=== PATIENT | female | born 1980 | race Two or more races ===

== ENCOUNTER 2017-02-14 07:03 | Emergency (ER) | payer OTHER ==
[~2017-02-14] VITALS: Ht 172.7 cm; Wt 91.0 kg
[~2017-02-14 07:03] MED LIST: AUGM875T PO; FLUC200T63 PO; FLUT1SPR9 NASAL; METH1TAB29 PO; VALT500T PO
[2017-02-14 07:04] VITALS: BP 127/82; PULSE 122; RESP 24; TEMP 100.2; O2SAT 96
[2017-02-14 07:24] VITALS: BP 149/80; PULSE 112; RESP 20; TEMP 99.3; O2SAT 97
[2017-02-14] MEDS ORDERED: MACR100C2 PO (07:24)
[2017-02-14] MEDS ORDERED: VALT500T PO (07:24)
[2017-02-14] MEDS ORDERED: PROT40TA PO (07:24)
[2017-02-14] MEDS ORDERED: SODIUM CHLOR 0.9% 1000 ML INJ 1,000 ML IV ONE ×3 (07:42)
[2017-02-14] MEDS ORDERED: ACETAMINOPHEN 325 MG TAB PO ONE (07:45)
--- NOTE | 2017-02-14 07:45 | PD ---
HPI Chief Complaint: Fever Time Seen by Provider: 07:12 Travel History International Travel<30 days: No Contact w/Intl Traveler<30days: No Traveled to known affect area: No History of Present Illness HPI 36-year-old female presents emergency Department with 3-4 day history of fevers cough congestion body aches and headache. Patient states that she has been gradually worsening. Fevers at home. She's also been diagnosed with urinary tract infection is currently taking Macrobid. She states she's been having cough productive of yellow sputum and has a history of asthma. Notably her son was diagnosed with yaib-[id number]-[id number]-mouth disease recently as well as strep throat. She did not receive flu shot this year. States she has a history of asthma. She has an inhaler at home. Denies abdominal pain nausea vomiting or diarrhea. PFSH Past Medical History Asthma: Yes Depression: Yes Cancer: No Cardiovascular Problems: Yes High Cholesterol: Yes Diminished Hearing: No Endocrine: No Gastrointestinal Disorders: Yes Genitourinary: No Headaches: Yes Immune Disorder: Yes (herpes) Musculoskeletal: No Neurologic: Yes Psychiatric: Yes Reproductive: No Respiratory: Yes (ASTHMA) Migraines: Yes ?: Not LMP: 01/28/17 : 1 Para: 1 Ovarian Cysts: Yes Past Surgical History Tonsillectomy: Yes Other Surgery: Yes (I & D ABSCESS RT GROIN 2004) Social History Alcohol Use: No Tobacco Use: No Substance Use: No Allergies-Medications (Allergen,Severity, Reaction): Coded Allergies: Latex (Verified Allergy, Mild, ITCHING, 02/14/17) Test Allergy (Name Field) (Verified Allergy, Mild, SWELLING; NOSE ITCHES, 02/14/17) Sulfa (Verified Allergy, Unknown, 02/14/17) Reported Meds & Prescriptions Reported Meds & Active Scripts Active Reported Macrobid (Nitrofurantoin Monoh/Nitrofur Macro) 100 Mg Cap 100 Mg PO BID Protonix (Pantoprazole Sodium) 40 Mg Tab 40 Mg PO DAILY Valtrex (Valacyclovir HCl) 500 Mg Tab 500 Mg PO DAILY Review of Systems Except as stated in HPI: all other systems reviewed are Neg Physical Exam Narrative GENERAL: Well-developed well-nourished in no apparent distress SKIN: No rash HEAD: Atraumatic. Normocephalic. EYES: Pupils equal and round. No scleral icterus. No injection or drainage. ENT: No nasal bleeding or discharge. Mucous membranes pink and moist. TMs clear bilaterally, oropharynx pink and moist. NECK: Trachea midline. No JVD. Kernig's and Brudzinski signs negative, full nontender range of motion of the neck. CARDIOVASCULAR: Regular rhythm with tachycardia. No murmur appreciated. RESPIRATORY: No accessory muscle use. Clear to auscultation. Breath sounds equal bilaterally. GASTROINTESTINAL: Abdomen soft, non-tender, nondistended. Hepatic and splenic margins not palpable. MUSCULOSKELETAL: No obvious deformities. No clubbing. No cyanosis. No edema. NEUROLOGICAL: Awake and alert. No obvious cranial nerve deficits. Motor grossly within normal limits. Normal speech. PSYCHIATRIC: Appropriate mood and affect; insight and judgment normal. Data Data Last Documented VS Vital Signs Date Time Temp Pulse Resp B/P Pulse Ox O2 Delivery O2 Flow Rate FiO2 02/14/17 09:04 103 21 137/81 96 Room Air 02/14/17 07:24 99.3 Orders Electrocardiogram (02/14/17 07:42) Complete Blood Count With Diff (02/14/17 07:42) Comprehensive Metabolic Panel (02/14/17 07:42) Prothrombin Time / Inr (Pt) (02/14/17 07:42) Act Partial Throm Time (Ptt) (02/14/17 07:42) Lactic Acid Sepsis Protocol (02/14/17 07:42) Magnesium (Mg) (02/14/17 07:42) Phosphorus (Po4) (02/14/17 07:42) Urinalysis - C+S If Indicated (02/14/17 07:42) Chest, Single Ap (02/14/17 07:42) Ecg Monitoring (02/14/17 07:42) Iv Access Insert/Monitor (02/14/17 07:42) Oximetry (02/14/17 07:42) Oxygen Administration (02/14/17 07:42) Acetaminophen (Tylenol) (02/14/17 07:45) Sodium Chlor 0.9% 1000 Ml Inj (Ns 1000 M (02/14/17 07:42) Sodium Chlor 0.9% 1000 Ml Inj (Ns 1000 M (02/14/17 07:42) Sodium Chlor 0.9% 1000 Ml Inj (Ns 1000 M (02/14/17 07:42) Influenzae A/B Antigen (02/14/17 07:44) Group A Rapid Strep Screen (02/14/17 07:44) Ed Urine Pregnancytest Poc (02/14/17 07:44) Strep Culture (Group A) (02/14/17 08:08) Ondansetron Inj (Zofran Inj) (02/14/17 08:30) Kqrc-Uqels-Pvmh 325-50-40 Mg (Fioricet 3 (02/14/17 10:45) Labs Laboratory Tests Test 02/14/17 08:08 White Blood Count 5.5 TH/MM3 Red Blood Count 4.44 MIL/MM3 Hemoglobin 12.0 GM/DL Hematocrit 36.1 % Mean Corpuscular Volume 81.3 FL Mean Corpuscular Hemoglobin 27.0 PG Mean Corpuscular Hemoglobin 33.2 % Concent Red Cell Distribution Width 14.6 % Platelet Count 174 TH/MM3 Mean Platelet Volume 8.6 FL Neutrophils (%) (Auto) 74.3 % Lymphocytes (%) (Auto) 15.5 % Monocytes (%) (Auto) 9.9 % Eosinophils (%) (Auto) 0.0 % Basophils (%) (Auto) 0.3 % Neutrophils # (Auto) 4.1 TH/MM3 Lymphocytes # (Auto) 0.9 TH/MM3 Monocytes # (Auto) 0.5 TH/MM3 Eosinophils # (Auto) 0.0 TH/MM3 Basophils # (Auto) 0.0 TH/MM3 CBC Comment DIFF FINAL Differential Comment Prothrombin Time 10.8 SEC Prothromb Time International 1.0 RATIO Ratio Activated Partial 32.7 SEC Thromboplast Time Urine Color YELLOW Urine Turbidity CLEAR Urine pH 5.5 Urine Specific [place] 1.022 Urine Protein TRACE mg/dL Urine Glucose (UA) NEG mg/dL Urine Ketones NEG mg/dL Urine Occult Blood NEG Urine Nitrite NEG Urine Bilirubin NEG Urine Urobilinogen LESS THAN 2.0 MG/DL Urine Leukocyte Esterase NEG Urine RBC LESS THAN 1 /hpf Urine WBC LESS THAN 1 /hpf Urine Squamous Epithelial 1 /hpf Cells Urine Mucus FEW /lpf Microscopic Urinalysis Comment CATH-CULT NOT IND Sodium Level 138 MEQ/L Potassium Level 3.9 MEQ/L Chloride Level 101 MEQ/L Carbon Dioxide Level 26.7 MEQ/L Anion Gap 10 MEQ/L Blood Urea Nitrogen 11 MG/DL Creatinine 0.97 MG/DL Estimat Glomerular Filtration 65 ML/MIN Rate Random Glucose 93 MG/DL Lactic Acid Level 1.0 mmol/L Calcium Level 9.2 MG/DL Phosphorus Level 3.5 MG/DL Magnesium Level 2.0 MG/DL Total Bilirubin 0.3 MG/DL Aspartate Amino Transf 20 U/L (AST/SGOT) Alanine Aminotransferase 25 U/L (ALT/SGPT) Alkaline Phosphatase 108 U/L Total Protein 8.1 GM/DL Albumin 4.3 GM/DL MDM Medical Decision Making Medical Screen Exam Complete: Yes Emergency Medical Condition: Yes Interpretation(s) EKG shows sinus tachycardia rate of 110, intervals otherwise within normal limits., Normal axis and normal R-wave progression. No concerning ST T changes. This normal EKG except for rate. Differential Diagnosis Flu, pneumonia, sepsis seems unlikely, UTI. Narrative Course Patient was roomed in the emergency department, signs symptoms consistent with influenza. She is tachycardic and has been on antibiotics for urinary tract infection and thus the sepsis protocol was started. Patient's white blood cell count is 5.5, she has a slight left shift, lecture lites within normal limits, lactic acid 1, urine is noninfected. Chest x-ray negative. Jac bilaterally testing is positive for influenza. Patient feeling better after fluid resuscitation. She has been having symptoms for 3 days and therefore no indication for Tamiflu. Discussed signs symptoms that should prompt emergent return to the ER. Discussed symptomatic management home. She is stable for discharge at this time. Diagnosis Primary Impression: Influenza Patient Instructions: General Instructions, Influenza (DC) Disposition: 01 DISCHARGE HOME Condition: Stable Carlos A Marcos MD February 14, 2017 07:45
[2017-02-14 08:18] VITALS: O2SAT 96
[2017-02-14 08:21] LABS: BLOOD, URINE NEG (NEG); COMMENT (UR) CATH-CULT NOT IND; CULTURE IF INDICATED CATH CULTURE NOT IND; GLUCOSE,URINE NEG (NEG); KETONE, URINE NEG (NEG); MUCUS URINE FEW /lpf (OCC); NITRITE,URINE NEG (NEG); PH, URINE 5.5 (5.0-8.5); SQUAMOUS EPITHELIAL CELL URINE 1 /hpf (0-5); URINE COLOR YELLOW (YELLW/STRAW)
[2017-02-14 08:22] LABS: AUTOMATED NEUTROPHIL # 4.1 TH/MM3 (1.8-7.7); BASOPHIL % 0.3 % (0.0-2.0); HEMATOCRIT 36.1 % (35.0-46.0); HEMO FLAGS DIFF FINAL; LYMPH % 15.5 % (9.0-44.0); LYMPHOCYTE # 0.9 TH/MM3 (1.0-4.8); MEAN CELL VOLUME 81.3 FL (80.0-100.0); MEAN CORPUSCULAR HGB CONC 33.2 % (32.0-36.0); MONO % 9.9 % (0.0-8.0); NEUT % 74.3 % (16.0-70.0); PLATELET COUNT 174 TH/MM3 (150-450); RED BLOOD COUNT 4.44 MIL/MM3 (4.00-5.30); RED CELL DISTRIBUTION WIDTH 14.6 % (11.6-17.2); WHITE BLOOD COUNT 5.5 TH/MM3 (4.0-11.0)
--- NOTE | 2017-02-14 08:28 | RADRPT ---
EXAM DATE/TIME: 02/14/2017 08:06 [facility] COMPARISON: CHEST SINGLE AP, April 27, 2016, 10:14. INDICATIONS : Cough and fever for the past two days. MEDICAL HISTORY : Asthma. SURGICAL HISTORY : None. ENCOUNTER: Initial ACUITY: 2 days PAIN SCORE: 0/10 LOCATION: Bilateral chest FINDINGS: A single view of the chest demonstrates the lungs to be symmetrically aerated without evidence of mas s, infiltrate or effusion. The cardiomediastinal contours are unremarkable. Osseous structures are intact. CONCLUSION: No acute disease. There is no evidence of pneumonia. Jac Jones MD on February 14, 2017 at 8:26 Board Certified Radiologist. This report was verified electronically.
[2017-02-14 08:29] LABS: APTT (PATIENT) 32.7 SEC (24.3-30.1); PROTHROMBIN TIME - PATIENT 10.8 SEC (9.8-11.6)
[2017-02-14] MEDS ORDERED: ONDANSETRON HCL 4 MG/2 ML VIAL IV PUSH ONE (08:30)
[2017-02-14 08:35] LABS: ANION GAP 10 MEQ/L (5-15); AST (GOT) 20 U/L (15-37); BICARBONATE 26.7 MEQ/L (21.0-32.0); BLOOD UREA NITROGEN 11 MG/DL (7-18); CHLORIDE 101 MEQ/L (98-107); GLOMERULAR FILTRATION RATE 65 ML/MIN (>89); POTASSIUM 3.9 MEQ/L (3.5-5.1); SODIUM (NA) 138 MEQ/L (136-145)
[2017-02-14 08:37] LABS: ALKALINE PHOSPHATASE 108 U/L (45-117); ALT (GPT) 25 U/L (10-53); TOTAL BILIRUBIN ADULT 0.3 MG/DL (0.2-1.0)
[2017-02-14 09:04] VITALS: BP 137/81; PULSE 103; RESP 21; O2SAT 96
[2017-02-14] MEDS ORDERED: ACETAMIN 325 MG/BUTALBITAL 50 MG/CAFFEINE 40 MG TAB PO ONE (10:45)
--- NOTE | 2017-02-14 22:00 | EKG ---
Date Performed: 02/14/2017 Time Performed: 08:14:48 PTAGE: 36 years EKG: SINUS TACHYCARDIA NONSPECIFIC T-WAVE ABNORMALITY ABNORMAL RHYTHM ECG PREVIOUS TRACING : 05/06/2010 07.13 DOCTOR: Gretchen Alexis Interpretating Date/Time 02/14/2017 21:52:51
== END 2017-02-14 11:14 | disposition home or self-care (01) ==
LOC: NEPC 07:03
DX: J10.1 Influenza due to other identified influenza virus with other respiratory manifestations (principal); J45.909 Unspecified asthma, uncomplicated; R94.31 Abnormal electrocardiogram [ECG] [EKG]; R05 Cough; N39.0 Urinary tract infection, site not specified
CPT/HCPCS: 71010; 80053; 81001; 83605; 83735; 84100; 84703; 85025; 85610; 85730; 87081; 87804; 87880; 93005; 96361; 96374; 99284; J2405; J7030